=== PATIENT | female | born 1980 | race Caucasian/White ===

== ENCOUNTER 2019-12-12 18:42 | Emergency (ER) | payer MEDICARE, MEDICAID ==
[~2019-12-12] VITALS: Ht 170.2 cm; Wt 65.0 kg
[~2019-12-12 18:42] MED LIST: LORA-249
[2019-12-12 21:18] VITALS: BP 128/69
== END 2019-12-12 21:19 | disposition home or self-care (01) ==
LOC: ER 18:42
DX: R60.0 Localized edema (principal); R03.0 Elevated blood-pressure reading, without diagnosis of hypertension
CPT/HCPCS: 99283